=== PATIENT | male | born 1990 | race African-American/Black ===

== ENCOUNTER 2025-03-07 22:44 | Emergency (ER) | payer OTHER ==
[~2025-03-07] VITALS: Ht 175.3 cm; Wt 90.0 kg
[2025-03-07 22:45] VITALS: O2SAT 98
[2025-03-07] MEDS: ONDANSETRON HCL 4MG/2ML INJ IV STA (23:32)
[2025-03-07] MEDS: MAGNESIUM/ALUMINUM HYDROXIDE/SIMETHICONE 30ML UDC PO STA (23:32)
[2025-03-07] MEDS: SODIUM CHLORIDE 0.9% 1,000 ML IV ONE (23:32)
[2025-03-08 00:03] LABS: BASOPHILS % 0.5 % (0.0-2.0); EOSINOPHILS % 2.8 % (0.0-5.0); HEMATOCRIT. 39.2 % (42.0-52.0); HEMOGLOBIN. 13.1 g/dL (14.0-18.0); LYMPHOCYTES % 33.2 % (20.0-50.0); MEAN CORPUSCULAR HEMOGLOBIN 27.5 pg (28.0-32.0); MEAN CORPUSCULAR HGB CONC 33.4 g/dL (31.0-37.0); MEAN CORPUSCULAR VOLUME 82.3 fL (80.0-94.0); MEAN PLATELET VOLUME 8.1 fl (7.4-10.4); MONOCYTES % 8.9 % (2.0-8.0); NEUTROPHILS % 54.6 % (40.0-76.0); PLATELET 168 x1000/uL (130-400); RED BLOOD CELL COUNT 4.76 mill/uL (4.7-6.1); RED CELL DISTRIBUTION WIDTH 14.3 % (11.6-14.6); WHITE BLOOD COUNT 5.8 x1000/uL (4.5-11.0)
[2025-03-08 00:07] LABS: CARBON DIOXIDE 28 mEq/L (21-32); CHLORIDE 102 mEq/L (98-107); POTASSIUM 3.1 mEq/L (3.5-5.1); SODIUM 141 mEq/L (136-145)
[2025-03-08 00:08] LABS: CALCIUM 9.2 mg/dL (8.7-10.4)
[2025-03-08 00:09] LABS: INR 0.9; PROTHROMBIN TIME 10.2 sec (9.6-11.0)
[2025-03-08 00:12] LABS: CREATININE 1.1 mg/dL (0.6-1.3); TROPONIN I HIGH SENSITIVITY 9 ng/L (3.0-53)
[2025-03-08 00:13] LABS: ETHANOL BLOOD 152 mg/dL (<10); GLUCOSE 101 mg/dL (70-105); UREA NITROGEN BLOOD 6 mg/dL (9-23)
[2025-03-08 00:14] LABS: ALANINE AMINOTRANSFERASE 161 IU/L (10-49); ALBUMIN 4.2 g/dL (3.2-4.8); ASPARTATE AMINOTRANSFERASE 104 IU/L (<34)
[2025-03-08 00:15] LABS: BILIRUBIN DIRECT 0.2 mg/dL (<=3.0); BILIRUBIN TOTAL 0.5 mg/dL (0.1-1.0); PROTEIN TOTAL 6.8 g/dL (6.0-8.3)
[2025-03-08] MEDS: POTASSIUM CHLORIDE 20MEQ/PACKET PO NR (01:29)
[2025-03-08] MEDS: MAGNESIUM/ALUMINUM HYDROXIDE/SIMETHICONE 30ML UDC PO NR (01:29)
[2025-03-08] MEDS: KETOROLAC 15MG/ML VIAL IV NR (01:29)
[2025-03-08 04:30] LABS: TROPONIN I HIGH SENSITIVITY 9 ng/L (3.0-53)
[2025-03-08] MEDS ORDERED: MAG355OR21 MT (04:32)
[2025-03-08 05:22] VITALS: BP 134/60; PULSE 75; RESP 12; TEMP 36.7; O2SAT 99
== END 2025-03-08 05:26 | disposition home or self-care (01) ==
LOC: ER 22:44 → EDBEDREQ 03-08 02:32 → EDBEDREQSVC 03-08 02:32 → EDBEDREQTM 03-08 02:32 → ER 03-08 05:26
DX: F10.229 Alcohol dependence with intoxication, unspecified (principal); E87.6 Hypokalemia; I10 Essential (primary) hypertension; F41.9 Anxiety disorder, unspecified; F17.200 Nicotine dependence, unspecified, uncomplicated; Y90.9 Presence of alcohol in blood, level not specified
CPT/HCPCS: 80076; 80048; 80320; 83690; 85025; 85610; 84484 ×2; 36415 ×2; 71045; 93005; 96361; 96374; 99285; 96375; J2405; J7030; J1885; G0480